=== PATIENT | female | born 1990 | race African-American/Black ===

== ENCOUNTER 2016-07-07 06:00 | Inpatient (IN) | payer MEDICAID ==
[2016-07-07] VITALS (12 sets, daily range): BP systolic 115–138; RESP 14–22; TEMP 97.5–98.5; Ht 157.5 cm; Wt 96.2 kg
[~2016-07-07] VITALS: Ht 157.5 cm; Wt 96.2 kg
[2016-07-07] MEDS ORDERED: LIDOCAINE 1% BUFFERED 1 ML SYR INTRADERM PRN (06:05)
[2016-07-07] MEDS ORDERED: FAMOTIDINE 20 MG INJ IV ONE (06:05)
[2016-07-07] MEDS ORDERED: CEFAZOLIN (LD/OB) 100 ML IV ONE (06:05)
[2016-07-07] MEDS ORDERED: LACT RINGERS 1,000 ML IV SCH (06:05)
[2016-07-07] MEDS ORDERED: METOCLOPRAMIDE 10 MG/2 ML VIAL IV PUSH ONE (06:05)
[2016-07-07] MEDS ORDERED: DILAUDID 1 MG/ML AMP IV PRN (07:00)
[2016-07-07] MEDS ORDERED: DIPHENHYDRAMINE 50 MG/ML VIAL IV PRN (07:00)
[2016-07-07] MEDS ORDERED: ONDANSETRON 4 MG VIAL IV PRN ×3 (07:00→11:30)
[2016-07-07] MEDS ORDERED: PROMETHAZINE 25 MG/ML VIAL IV PRN (07:00)
[2016-07-07] MEDS ORDERED: BUTORPHANOL 1 MG/ML VIAL IV PRN (07:00)
[2016-07-07] MEDS ORDERED: MORPHINE 2 MG/ML SYR IV PRN ×2 (07:00)
[2016-07-07] MEDS ORDERED: OXYCODONE 5 MG TAB PO PRN (07:00)
[2016-07-07] MEDS ORDERED: MEPERIDINE 25 MG/ML IV PRN (07:00)
[2016-07-07] MEDS ORDERED: NALOXONE 0.4 MG/ML AMP IV PRN (07:00)
[2016-07-07] MEDS ORDERED: MORPHINE 4 MG/ML SYR IV PRN ×2 (07:00)
[2016-07-07] MEDS ORDERED: SALINE FLUSH 10 ML FLUSH PRN ×2 (07:00→11:30)
[2016-07-07] MEDS ORDERED: SALINE FLUSH 10 ML FLUSH SCH ×2 (08:00→20:00)
[2016-07-07] MEDS ORDERED: MIDAZOLAM 2 MG/2 ML INJ IV ONE (10:09)
[2016-07-07] MEDS ORDERED: MEPERIDINE 25 MG/ML IV ONE (10:09)
[2016-07-07] MEDS ORDERED: OXYTOCIN 10 UNITS/ML VIAL IV ONE (10:09)
[2016-07-07] MEDS ORDERED: FENTANYL 100 MCG/2 ML AMP IV ONE (10:09)
[2016-07-07] MEDS ORDERED: PHENYLEPHRINE 10 MG/ML VIAL IV ONE (10:09)
[2016-07-07] MEDS ORDERED: BISACODYL 10 MG SUPP RECTAL PRN (11:30)
[2016-07-07] MEDS ORDERED: MEASLES,MUMPS,RUBELLA VAC SUBQ.VACC ONE (11:30)
[2016-07-07] MEDS ORDERED: TDaP 0.5 ML VIAL IM.VACC ONE (11:30)
[2016-07-07] MEDS ORDERED: OXYTOCIN 15 UNITS/250 ML NS 250 ML IV SCH (11:30)
[2016-07-07] MEDS ORDERED: SODIUM CHLORIDE 0.9% FLUSH BAG 500 ML IV PRN (11:30)
[2016-07-07] MEDS ORDERED: MAG HYDROX 30 ML UDC PO PRN (11:30)
[2016-07-07] MEDS: KETOROLAC 30 MG/ML VIAL IV SCH ×2 (12:41→18:03)
[2016-07-07] MEDS: MISOPROSTOL 200 MCG TAB PO SCH ×2 (12:49→16:43)
[2016-07-07] MEDS: LACT RINGERS 1,000 ML IV SCH (18:09)
[2016-07-07] MEDS ORDERED: MISOPROSTOL 100 MCG TAB PO SCH (19:00)
[2016-07-07] MEDS: DOCUSATE SOD 100 MG CAP PO SCH (20:43)
[2016-07-08] MEDS: KETOROLAC 30 MG/ML VIAL IV SCH ×2 (00:32→05:57)
[2016-07-08] MEDS: MISOPROSTOL 200 MCG TAB PO SCH ×3 (00:33→11:36)
[2016-07-08] MEDS: LACT RINGERS 1,000 ML IV SCH (00:37)
[2016-07-08 01:53] VITALS: BP_SYST 114; RESP 16; TEMP 98.9
[2016-07-08 05:46] VITALS: BP_SYST 134; RESP 16; TEMP 98.5
[2016-07-08] MEDS ORDERED: SODIUM CHLORIDE 0.9% FLUSH BAG 500 ML IV SCH (06:00)
[2016-07-08] MEDS ORDERED: SODIUM CHLORIDE 0.9% FLUSH BAG 500 ML IV PRN (07:35)
[2016-07-08] MEDS ORDERED: SALINE FLUSH 10 ML FLUSH PRN (07:35)
[2016-07-08] MEDS ORDERED: SALINE FLUSH 10 ML FLUSH SCH (08:00)
[2016-07-08 09:10] VITALS: BP_SYST 122; RESP 16; TEMP 97.8
[2016-07-08] MEDS: Ibuprofen 600 MG TAB PO SCH ×2 (11:35→17:12)
[2016-07-08] MEDS: DOCUSATE SOD 100 MG CAP PO SCH ×2 (11:36→21:03)
[2016-07-08 17:14] VITALS: BP_SYST 126; RESP 16; TEMP 97.2
[2016-07-09] MEDS: Ibuprofen 600 MG TAB PO SCH ×2 (00:03→06:49)
[2016-07-09 05:05] VITALS: BP_SYST 117; RESP 18; TEMP 98.1
[2016-07-09] MEDS: DOCUSATE SOD 100 MG CAP PO SCH (08:52)
[2016-07-09 09:39] VITALS: BP_SYST 117; RESP 18; TEMP 98.1
[2016-07-09 10:58] VITALS: BP_SYST 133; RESP 20; TEMP 98.2
== END 2016-07-09 11:00 | disposition home or self-care (01) | DRG 766 ==
LOC: LD 06:00 → OB 10:45
PROVIDERS: ADMIT Obstetrics & Gynecology; ATTEND Obstetrics & Gynecology
PROC: 10D00Z1 Extraction of Products of Conception, Low, Open Approach (ICD-10-PCS; principal; 2016-07-07)
PROC: 0UL70CZ Occlusion of Bilateral Fallopian Tubes with Extraluminal Device, Open Approach (ICD-10-PCS; 2016-07-07)
DX: O34.211 Maternal care for low transverse scar from previous cesarean delivery (principal); O99.214 Obesity complicating childbirth; N85.8 Other specified noninflammatory disorders of uterus; O75.82 Onset (spontaneous) of labor after 37 completed weeks of gestation but before 39 completed weeks gestation, with delivery by (planned) cesarean section; Z3A.39 39 weeks gestation of pregnancy; Z37.0 Single live birth; O36.1930 Maternal care for other isoimmunization, third trimester, not applicable or unspecified
CPT/HCPCS: 82803; 85025; 85384; 85610; 85730; 86850; 86870; 86900; 86901